=== PATIENT | female | born 1930 | race Caucasian/White ===

== ENCOUNTER 2016-07-19 16:08 | Emergency (ER) | payer MEDICARE ==
[2016-07-19 16:27] VITALS: BP 153/63
--- NOTE | 2016-07-19 17:14 | UC ---
General HPI - HPI Summary HPI Summary: Patient tripped on sidewalk landing first on hands and knees and then fell forward and hit her head. small abraision to left knee, bruising over both knees , and red area to right side of forehead. - History of Current Complaint Chief Complaint: UCHeadInjury Stated Complaint: FALL-HEAD INJURY Time Seen by Provider: 07/19/16 16:38 Hx Obtained From: Patient Onset/Duration: Sudden Onset, Lasting Hours Timing: Constant Onset Severity: Mild Current Severity: Mild Pain Intensity: 3 - Allergy/Home Medications Allergies/Adverse Reactions: Allergies Allergy/AdvReac Type Severity Reaction Status Date / Time Ciprofloxacin [From Cipro] Allergy Perineal Verified 07/19/16 16:27 Rash Iodinated Diagnostic Agents Allergy Hives and Verified 07/19/16 16:27 Swelling Iodine Allergy Hives and Verified 07/19/16 16:27 Swelling Povidone Iodine Allergy Hives and Verified 07/19/16 16:27 [From Betadine] Swelling Omeprazole [From Prilosec] AdvReac Tachycardia Verified 07/19/16 16:27 Seasonal Allergy Rhinitis Uncoded 02/14/15 09:29 Home Medications: Home Medications predniSONE TAB* [Deltasone TAB*] 20 mg PO DAILY 07/19/16 [History Confirmed ] PMH/Surg Hx/FS Hx/Imm Hx Previously Healthy: Yes Cardiovascular History Of: Reports: Cardiac Disorders - Sinus Node Dysfunction - Surgical History Surgical History: Yes Surgery Procedure, Year, and Place: Bilateral Cataracts and Implants, Hysterectomy, Left Knee Ligament - Family History Known Family History: Positive: Hypertension - Social History Alcohol Use: None Substance Use Type: None Smoking Status (MU): Never Smoked Tobacco - Immunization History Most Recent Influenza Vaccination: 02/12/15 Most Recent Tetanus Shot: 02/06/15 Review of Systems Constitutional: Negative Skin: Bruising Eyes: Negative ENT: Negative Respiratory: Negative Cardiovascular: Negative Gastrointestinal: Negative Genitourinary: Negative Motor: Negative Neurovascular: Negative Musculoskeletal: Negative Neurological: Negative Psychological: Negative All Other Systems Reviewed And Are Negative: Yes Physical Exam Triage Information Reviewed: Yes Appearance: Well-Appearing, Well-Nourished, Pain Distress Vital Signs: Initial Vital Signs Temp 97.9 F 07/19/16 16:20 Pulse 64 07/19/16 16:20 Resp 16 07/19/16 16:20 BP 153/63 07/19/16 16:20 Pulse Ox 98 07/19/16 16:20 Vital Signs Reviewed: Yes Eye Exam: Normal Eyes: Positive: Conjunctiva Clear ENT Exam: Normal ENT: Positive: Normal ENT inspection, Hearing grossly normal, Pharynx normal, TMs normal Dental Exam: Normal Neck exam: Normal Neck: Positive: Supple, Nontender, No Lymphadenopathy Respiratory Exam: Normal Respiratory: Positive: Chest non-tender, Lungs clear, Normal breath sounds Cardiovascular Exam: Normal Cardiovascular: Positive: RRR, No Murmur, Pulses Normal Abdominal Exam: Normal Abdomen Description: Positive: Nontender, No Organomegaly, Soft Bowel Sounds: Positive: Present Musculoskeletal Exam: Normal - moving all extremities with full ROM, denies any pain with movement, bruising noted on both knees, mild swelling over the left patella, denies pain with palpation. wrist have full ROM, no brusing noted, moves neck without difficulty or pain, Other Neurological Exam: Other - PERRLA, EOMI, neg rhomberg, gait is steady, Neurological: Positive: Alert, Muscle Tone Normal Psychological Exam: Normal Skin: Positive: Other - small red area on forehead from contact, small abrasion on left knee, cleaned prior to arrival, brusing on knees. Course/Dx - Course Course Of Treatment: hx obtained, exam performed, no meds given. educated patient on RICE. - Differential Dx - Multi-Symptom Provider Diagnoses: fall/Trip. bruising of knee. Abrasion, left knee Discharge - Discharge Plan Condition: Stable Disposition: HOME Patient Education Materials: Fall Prevention for Older Adults (ED) Additional Instructions: REST ICE your knees and wrist for 20 min at a time as needed. Tylenol for pain Follow up with any increase in headache, or dizzyness, or if you just are not feeling like yourself.
== END 2016-07-19 17:23 | disposition home or self-care (01) ==
LOC: UCCORT 16:08
DX: S80.02XA Contusion of left knee, initial encounter (principal); S80.01XA Contusion of right knee, initial encounter; S80.212A Abrasion, left knee, initial encounter; W01.198A Fall on same level from slipping, tripping and stumbling with subsequent striking against other object, initial encounter; Y92.9 Unspecified place or not applicable; Z98.42 Cataract extraction status, left eye; Z98.41 Cataract extraction status, right eye; Z96.1 Presence of intraocular lens; Z88.1 Allergy status to other antibiotic agents; Z88.5 Allergy status to narcotic agent; Z91.041 Radiographic dye allergy status
CPT/HCPCS: 99212; G0463

== ENCOUNTER 2017-06-09 14:14 | Emergency (ER) | payer MEDICARE ==
[2017-06-09 16:23] VITALS: BP 115/53
[2017-06-09] MEDS ORDERED: Oseltamivir CAP* 75 MG PO ONE (16:46)
--- NOTE | 2017-06-09 16:49 | UC ---
Respiratory Complaint HPI - HPI Summary HPI Summary: 87 yo female with cough unsure of onset here for flu test home plans to start tamiflu tomorrow no known fever flu outbreak at home - History of Current Complaint Chief Complaint: UCRespiratory Stated Complaint: FLU LIKE SYMPTOMS Time Seen by Provider: 06/09/17 16:26 Hx Obtained From: Patient Onset/Duration: Gradual Onset, Other - ? Timing: Constant Severity Initially: Mild Severity Currently: Mild Pain Scale Used: 0-10 Numeric Character: Cough: Nonproductive Aggravating Factors: Nothing Alleviating Factors: Nothing Associated Signs And Symptoms: Positive: Negative - Allergies/Home Medications Allergies/Adverse Reactions: Allergies Allergy/AdvReac Type Severity Reaction Status Date / Time Ciprofloxacin [From Cipro] Allergy Perineal Verified 06/09/17 16:23 Rash Iodinated Diagnostic Agents Allergy Hives and Verified 06/09/17 16:23 Swelling Iodine Allergy Hives and Verified 06/09/17 16:23 Swelling Povidone Iodine Allergy Hives and Verified 06/09/17 16:23 [From Betadine] Swelling Omeprazole [From Prilosec] AdvReac Tachycardia Verified 06/09/17 16:23 Seasonal Allergy Rhinitis Uncoded 06/09/17 16:23 PMH/Surg Hx/FS Hx/Imm Hx Previously Healthy: Yes Cardiovascular History: Pacemaker/ICD Respiratory History: COPD - Surgical History Surgical History: Yes Surgery Procedure, Year, and Place: Bilateral Cataracts and Implants, Hysterectomy, Left Knee Ligament - Family History Known Family History: Positive: Hypertension - Social History Alcohol Use: None Substance Use Type: None Smoking Status (MU): Never Smoked Tobacco - Immunization History Most Recent Influenza Vaccination: 02/12/15 Most Recent Tetanus Shot: 02/06/15 Review of Systems Constitutional: Negative Skin: Negative Eyes: Negative ENT: Negative Respiratory: Cough Cardiovascular: Negative Gastrointestinal: Negative Genitourinary: Negative Motor: Negative Neurovascular: Negative Musculoskeletal: Negative Neurological: Negative Psychological: Negative Is Patient Immunocompromised?: No All Other Systems Reviewed And Are Negative: Yes Physical Exam Triage Information Reviewed: Yes Appearance: Well-Appearing, No Pain Distress, Well-Nourished Vital Signs: Initial Vital Signs Temp 98.3 F 06/09/17 16:14 Pulse 71 06/09/17 16:14 Resp 18 06/09/17 16:14 BP 115/53 06/09/17 16:14 Pulse Ox 96 06/09/17 16:14 Eyes: Positive: Conjunctiva Clear ENT: Negative: Hearing grossly normal, Nasal congestion, Nasal drainage, Trismus , Hoarse voice, Dental tenderness, Sinus tenderness Neck: Positive: Supple, Nontender, No Lymphadenopathy Respiratory: Positive: Lungs clear, Normal breath sounds, No respiratory distress Cardiovascular: Positive: RRR. Negative: No Murmur Musculoskeletal: Positive: ROM Intact, No Edema Neurological: Positive: Alert Psychological Exam: Normal Skin Exam: Normal UC Diagnostic Evaluation - Laboratory Pertinent Lab Values Are: WNL Except: - influenza A (+) O2 Sat by Pulse Oximetry: 96 - normal/not hypoxic Respiratory Course/Dx - Differential Dx/Diagnosis Provider Diagnoses: influenza Discharge - Discharge Plan Condition: Stable Disposition: HOME Patient Education Materials: Influenza (ED) Referrals: Jeff Jefferson MD [Primary Care Provider] - Additional Instructions: TAKE TAMIFLU PLANNED RECHECK FOR NEW OR WORSENING SYMPTOMS
== END 2017-06-09 16:57 | disposition home or self-care (01) ==
LOC: UCCORT 14:14
DX: J11.1 Influenza due to unidentified influenza virus with other respiratory manifestations (principal); J44.9 Chronic obstructive pulmonary disease, unspecified; Z88.3 Allergy status to other anti-infective agents; Z95.0 Presence of cardiac pacemaker
CPT/HCPCS: 87502; 99211; A9270-GY; G0463

== ENCOUNTER 2017-07-01 09:05 | Emergency (ER) | payer MEDICARE ==
--- NOTE | 2017-07-01 10:31 | UC ---
Respiratory Complaint HPI - HPI Summary HPI Summary: un witness fall maybe 3-4 days ago---patient is complaining of cough and right rib pain, pain in right hip and pain in right side of head--daughter thinks she maybe more confused than usual , patient recently did have the flu and seems to have recovered from that - History of Current Complaint Chief Complaint: UCGeneralIllness Stated Complaint: COUGH, CHEST CONGESTION Time Seen by Provider: 07/01/17 10:23 Hx Obtained From: Patient ?: No Onset/Duration: Sudden Onset, Lasting Days, Still Present Timing: Constant Severity Initially: Mild Severity Currently: Mild Pain Intensity: 3 Character: Cough: Nonproductive Aggravating Factors: Nothing Alleviating Factors: Nothing Associated Signs And Symptoms: Positive: Pleuritic Chest Pain - Allergies/Home Medications Allergies/Adverse Reactions: Allergies Allergy/AdvReac Type Severity Reaction Status Date / Time MS Ciprofloxacin [From Cipro] Allergy Perineal Verified 07/01/17 10:18 Rash MS Iodinated Diagnostic Allergy Hives and Verified 07/01/17 10:18 Agents Swelling [Iodinated Diagnostic Agents] MS Iodine [Iodine] Allergy Hives and Verified 07/01/17 10:18 Swelling MS Povidone Iodine Allergy Hives and Verified 07/01/17 10:18 [From Betadine] Swelling MS Omeprazole [From Prilosec] AdvReac Tachycardia Verified 07/01/17 10:18 Seasonal Allergy Rhinitis Uncoded 07/01/17 10:18 PMH/Surg Hx/FS Hx/Imm Hx Previously Healthy: No GI/ History: Gastroesophageal Reflux - Surgical History Surgical History: Yes Surgery Procedure, Year, and Place: Bilateral Cataracts and Implants, Hysterectomy, Left Knee Ligament - Family History Known Family History: Positive: Hypertension - Social History Occupation: Retired Lives: Assisted Living Alcohol Use: None Substance Use Type: None Smoking Status (MU): Never Smoked Tobacco - Immunization History Most Recent Influenza Vaccination: 02/12/15 Most Recent Tetanus Shot: 02/06/15 Review of Systems Constitutional: Negative Skin: Negative Eyes: Negative ENT: Negative Respiratory: Cough Cardiovascular: Negative Gastrointestinal: Negative Genitourinary: Negative Motor: Negative Neurovascular: Negative Musculoskeletal: Arthralgia - right chest, head and hip Neurological: Negative Psychological: Negative Is Patient Immunocompromised?: No All Other Systems Reviewed And Are Negative: Yes Physical Exam Triage Information Reviewed: Yes Appearance: Well-Appearing, No Pain Distress, Well-Nourished Vital Signs: Initial Vital Signs Temp 98.3 F 07/01/17 10:09 Pulse 73 07/01/17 10:09 Resp 18 07/01/17 10:09 BP 116/66 07/01/17 10:09 Pulse Ox 100 07/01/17 10:09 Vital Signs Reviewed: Yes Eye Exam: Normal Eyes: Positive: Conjunctiva Clear ENT Exam: Normal ENT: Positive: Normal ENT inspection, Hearing grossly normal, Pharynx normal, TMs normal, Uvula midline. Negative: Nasal congestion, Tonsillar swelling, Tonsillar exudate, Trismus, Muffled voice, Hoarse voice, Dental tenderness Dental Exam: Normal Neck exam: Normal Neck: Positive: Supple, Nontender, No Lymphadenopathy Respiratory Exam: Normal Respiratory: Positive: Chest non-tender, Lungs clear, Normal breath sounds, No respiratory distress, No accessory muscle use Cardiovascular Exam: Normal Cardiovascular: Positive: RRR, No Murmur, Pulses Normal, Brisk Capillary Refill Abdominal Exam: Normal Abdomen Description: Positive: Nontender, No Organomegaly, Soft. Negative: CVA Tenderness (R), CVA Tenderness (L) Musculoskeletal Exam: Normal Musculoskeletal: Positive: Strength Intact, ROM Intact, No Edema Neurological Exam: Normal Neurological: Positive: Alert, Muscle Tone Normal, Other: - daughter feels she may be more confused than usual Psychological Exam: Normal Skin Exam: Normal UC Diagnostic Evaluation - Laboratory O2 Sat by Pulse Oximetry: 100 Diagnostic Studies Comment: Ua Trace Blood - Radiology Xray Interpretation: No Acute Changes Radiology Interpretation Completed By: Radiologist Respiratory Course/Dx - Course Course Of Treatment: Increase fluids, tylenol for pain, robitussin /Mucinex for cough follow with pcp - Differential Dx/Diagnosis Provider Diagnoses: cough, hematuria,elevated blood pressure without diagnosis of hypertension Discharge - Discharge Plan Condition: Stable Disposition: HOME Patient Education Materials: Fall Prevention for Older Adults (ED), Acute Cough (ED), Hypertension (ED) Referrals: Jeff Jefferson MD [Primary Care Provider] - 1 Week
--- NOTE | 2017-07-01 11:58 | RAD ---
INDICATION: Cough and right rib pain COMPARISON: None TECHNIQUE: PA and lateral views of the chest were obtained. FINDINGS: A left upper chest cardiac pacemaker with 2 leads overlying the heart is noted. The heart and mediastinum are normal in size and contour. The lungs are grossly clear. There is no evidence of large pleural effusion. The visualized thoracic bones are diffusely demineralized. There is a chronic appearing compression deformity at the mid-level thoracic vertebral body without retropulsion of fragments or abrupt cortical discontinuity. There is no radiographic evidence of free air beneath the diaphragm IMPRESSION: No radiographic evidence of acute cardiopulmonary disease.
--- NOTE | 2017-07-01 12:03 | RAD ---
INDICATION: Right hip pain after a fall COMPARISON: None TECHNIQUE: 3 views of the right hip were obtained. FINDINGS: There is questionable cortical discontinuity along the medial margin of the right inferior pubic ramus. The bones are otherwise intact and appropriately aligned. The joint spaces are normal. There is no radiographic evidence of acute fracture or dislocation. IMPRESSION: There is a highly questionable nondisplaced fracture involving the right inferior pubic ramus. If the patient's symptoms persist follow-up imaging is recommended.
--- NOTE | 2017-07-01 12:13 | RAD ---
INDICATION: Fall COMPARISON: None. TECHNIQUE: Contiguous axial sections of the brain were obtained from the skull base to the vertex without contrast. FINDINGS: The ventricles, cisterns and sulci symmetrical involutional changes not inappropriate for the patient's age. There is mild periventricular and subcortical white matter hypoattenuation most consistent with chronic microvascular disease. The tse-white matter differentiation is adequately maintained and there is no sulcal effacement. No significant focal abnormality or mass effect is present. There is no evidence for intracranial hemorrhage. No significant focal osseous abnormality is present. The visualized portion of the paranasal sinuses appear clear. The mastoid air cells are well aerated bilaterally. IMPRESSION: Age-appropriate chronic appearing findings as described above without calvarial fracture or acute intracranial hemorrhage.
[2017-07-01 12:33] VITALS: BP 153/69
--- NOTE | 2017-07-01 12:33 | RAD ---
CLINICAL HISTORY: Right hip pain after a fall COMPARISON: Same day radiograph depicting a highly questionable ramus fracture TECHNIQUE: Axial CT images of the pelvis were obtained without intravenous contrast. Reformats in the sagittal and coronal planes were created and reviewed. FINDINGS: The visualized segments of small and large bowel are not distended. The appendix Is grossly normal appearance without pathologic dilatation. There is no gross retroperitoneal or mesenteric lymphadenopathy in the visualized portions of the lower abdomen and pelvis. There is coarse atherosclerotic calcification at the lower abdominal aorta and iliac bifurcation. Mild degenerative changes are noted the bilateral hips. There is no evidence of right hip fracture or fracture at the pubic rami. Degenerative changes are seen at the lower lumbar spine. IMPRESSION: Degenerative changes involving the bilateral hips and lower lumbar spine without acute fracture or dislocation.
== END 2017-07-01 12:57 | disposition home or self-care (01) ==
LOC: UCCORT 09:05
DX: R05 Cough (principal); R31.9 Hematuria, unspecified; R03.0 Elevated blood-pressure reading, without diagnosis of hypertension
CPT/HCPCS: 70450; 71046; 72192; 81003; 87086; 99212; G0463